=== PATIENT | female | born 1990 | race Caucasian/White ===

== ENCOUNTER 2018-05-13 08:59 | Emergency (ER) | payer OTHER ==
[~2018-05-13] VITALS: Ht 157.5 cm; Wt 47.2 kg
[2018-05-13 09:06] VITALS: BP 116/77
--- NOTE | 2018-05-13 09:11 | NUR ---
patient ambulated to 7 with steady gait. Gave report to [facility].
--- NOTE | 2018-05-13 09:20 | NUR ---
28yo f bib boyfriend with c/o bl lower abdominal/groin cramping x 2 days. Patient sts she is for unknown amount of time via positive home test. AAOx4. Patient denies any vaginal bleeding, pain with urination, n/v/d. pt states that stools are 3days apart but denies any straining with bm. abd soft, non tender. pt denies any sob, cp , fever or cough at this time. will continue to monitor. er md made aware. pt positioned for comfort. hx--patient denies rx--patient denies
--- NOTE | 2018-05-13 09:45 | NUR ---
Patient being evaluated by physician at bedside.
--- NOTE | 2018-05-13 10:10 | NUR ---
ultrasound at bedside
--- NOTE | 2018-05-13 10:30 | NUR ---
pt resting in bed with ultrasound at bedside in no apearent distress
[2018-05-13 11:45] VITALS: BP 118/76
--- NOTE | 2018-05-13 11:45 | NUR ---
Patient discharged with v/s stable. Written and verbal after care instructions given and explained. Patient verbalized understanding. Ambulatory with steady gait. All questions addressed prior to discharge. Advised to follow up with PMD.
== END 2018-05-13 11:45 | disposition home or self-care (01) ==
LOC: MED 08:59
DX: O26.891 Other specified pregnancy related conditions, first trimester (principal); R10.9 Unspecified abdominal pain; R11.0 Nausea; Z3A.01 Less than 8 weeks gestation of pregnancy
CPT/HCPCS: 36415; 76801; 76817; 81002; 81025; 84702; 99285; Q0092